=== PATIENT | male | born 1990 | race Two or more races ===

== ENCOUNTER 2020-01-28 17:19 | Emergency (ER) | payer OTHER ==
[~2020-01-28] VITALS: Ht 175.3 cm; Wt 104.3 kg
--- NOTE | 2020-01-28 17:26 | NUR ---
cleared by PADILLA Martinez, afebrile AWAITING EVALUATION BY ER PROVIDER. Patient discharged to [facility] in stable condition. Written and verbal after care instructions given.
[2020-01-28 17:28] VITALS: BP 156/100
== END 2020-01-28 17:28 ==
LOC: ER 17:22
DX: Z02.89 Encounter for other administrative examinations (principal); Z91.19 Patient's noncompliance with other medical treatment and regimen